=== PATIENT | male | born 1950 | race Caucasian/White ===

== ENCOUNTER → 2017-03-05 | Outpatient (CLI) | payer OTHER, MEDICARE ==
[~2017-03-05] MED LIST: ASPI-57 PO; FURO20TA6 PO; METH-189 PO; METO-107 PO; NITR0.4T27 SL; ROSU20TA11 PO
== END ==
LOC: WC.BC 09:44
PROVIDERS: ATTEND Internal Medicine
DX: N62 Hypertrophy of breast (principal); N64.4 Mastodynia
CPT/HCPCS: 77062; G0204